=== PATIENT | male | born 1985 | race African-American/Black ===

== ENCOUNTER 2024-01-13 16:12 | Emergency (ER) | payer OTHER ==
[~2024-01-13] VITALS: Ht 180.3 cm; Wt 104.0 kg
[2024-01-13 16:35] VITALS: BP 156/96; PULSE 86; RESP 20; TEMP 98.1; O2SAT 99
[2024-01-13 16:39] LABS: BASOPHILS % 0.4 % (0.0-2.0); HEMATOCRIT. 43.6 % (42.0-52.0); HEMOGLOBIN. 14.5 g/dL (14.0-18.0); LYMPHOCYTES % 14.6 % (20.0-50.0); MEAN CORPUSCULAR HEMOGLOBIN 29.3 pg (28.0-32.0); MEAN CORPUSCULAR HGB CONC 33.3 g/dL (31.0-37.0); MEAN CORPUSCULAR VOLUME 87.8 fL (80.0-94.0); MONOCYTES % 5.5 % (2.0-8.0); NEUTROPHILS % 79.5 % (40.0-76.0); PLATELET 244 x1000/uL (130-400); RED BLOOD CELL COUNT 4.96 mill/uL (4.7-6.1); RED CELL DISTRIBUTION WIDTH 13.1 % (11.6-14.6); WHITE BLOOD COUNT 7.8 x1000/uL (4.5-11.0)
[2024-01-13 16:52] LABS: CHLORIDE 103 mEq/L (98-107); POTASSIUM 4.4 mEq/L (3.5-5.1); SODIUM 140 mEq/L (136-145)
[2024-01-13 16:53] LABS: CARBON DIOXIDE 31 mEq/L (21-32)
[2024-01-13 16:54] LABS: CALCIUM 10.3 mg/dL (8.7-10.4)
[2024-01-13 16:58] LABS: CREATININE 1.3 mg/dL (0.6-1.3); GLUCOSE 108 mg/dL (70-105)
[2024-01-13 16:59] LABS: TROPONIN I HIGH SENSITIVITY 5 ng/L (3.0-53); UREA NITROGEN BLOOD 13 mg/dL (9-23)
== END 2024-01-13 20:00 | disposition left against medical advice (07) ==
LOC: ER 16:12
DX: R07.89 Other chest pain (principal)
CPT/HCPCS: 36415; 71045; 80048; 84484; 85025; 93005; 99285

== ENCOUNTER 2025-03-07 10:04 | Emergency (ER) | payer MEDICAID ==
[~2025-03-07] VITALS: Ht 172.7 cm; Wt 111.0 kg
[2025-03-07 10:13] VITALS: O2SAT 100
[2025-03-07] MEDS ORDERED: BUPR1TAB33 SL (10:39)
[2025-03-07 10:51] LABS: BASOPHILS % 0.3 % (0.0-2.0); EOSINOPHILS % 0.2 % (0.0-5.0); HEMATOCRIT. 46.0 % (42.0-52.0); HEMOGLOBIN. 15.3 g/dL (14.0-18.0); LYMPHOCYTES % 21.7 % (20.0-50.0); MEAN PLATELET VOLUME 9.0 fl (7.4-10.4); MONOCYTES % 5.5 % (2.0-8.0); NEUTROPHILS % 72.3 % (40.0-76.0); PLATELET 267 x1000/uL (130-400); RED BLOOD CELL COUNT 5.42 mill/uL (4.7-6.1); RED CELL DISTRIBUTION WIDTH 14.1 % (11.6-14.6)
[2025-03-07] MEDS: BUPRENORPHINE 8MG SL TABLET SL ONE (11:11)
[2025-03-07] MEDS: CLONIDINE 0.1MG TABLET PO ONE (11:11)
[2025-03-07 11:13] LABS: CREATININE 1.3 mg/dL (0.6-1.3); UREA NITROGEN BLOOD 14 mg/dL (9-23)
[2025-03-07 11:14] LABS: ETHANOL BLOOD < 10 mg/dL (<10)
[2025-03-07] MEDS ORDERED: NALO4SPR BOTHNSTRLS (11:19)
[2025-03-07] MEDS ORDERED: CLON-493 MT (11:19)
[2025-03-07 11:39] VITALS: BP 126/88; PULSE 86; RESP 18; TEMP 36.6; O2SAT 99
[2025-03-07 12:36] LABS: *AMPHETAMINES SCREEN URINE NEGATIVE (NEGATIVE)
[2025-03-07 12:37] LABS: *BARBITURATES SCREEN URINE NEGATIVE (NEGATIVE); *BENZODIAZEPINES SCREEN URINE NEGATIVE (NEGATIVE); *COCAINE SCREEN URINE PRESUMPTIVE POSITIVE (NEGATIVE); CANNABINOID URINE SCREEN NEGATIVE (NEGATIVE); ECSTASY MDMA SCREEN URINE NEGATIVE (NEGATIVE); METHADONE URINE SCREEN NEGATIVE (NEGATIVE); OPIATES URINE SCREEN NEGATIVE (NEGATIVE); PHENCYCLIDINE URINE SCREEN NEGATIVE (NEGATIVE)
== END 2025-03-07 11:40 | disposition home or self-care (01) ==
LOC: ER 10:04
DX: M79.18 Myalgia, other site (principal); F11.23 Opioid dependence with withdrawal; I10 Essential (primary) hypertension; Z79.899 Other long term (current) drug therapy
CPT/HCPCS: 80305; 80048; 80320; 85025; 36415; 99283; Z7610; G0480